=== PATIENT | female | born 1990 | race African-American/Black ===

== ENCOUNTER 2017-01-13 05:22 | Emergency (ER) | payer OTHER | END 2017-01-13 06:07 | disposition home or self-care (01) | LOC: ER 05:22 | DX: K64.4 Residual hemorrhoidal skin tags (principal); F17.200 Nicotine dependence, unspecified, uncomplicated; Z91.038 Other insect allergy status; Z91.018 Allergy to other foods; Z91.040 Latex allergy status | CPT/HCPCS: 99283; A9270-GY ==